=== PATIENT | male | born 1950 | race African-American/Black ===

== ENCOUNTER 2017-03-22 14:37 | Inpatient (IN) | payer MEDICARE ==
[2017-03-22 15:09] LABS: ABSOLUTE BASOPHILS # (AUTO) 0.1 10^3/uL (0.0-0.2); ABSOLUTE EOSINOPHILS # (AUTO) 0.1 10^3/uL (0.0-0.6); ABSOLUTE LYMPHOCYTES (AUTO) 2.1 10^3/uL (0.5-4.7); ABSOLUTE MONOCYTES (AUTO) 0.6 10^3/uL (0.1-1.4); ABSOLUTE NEUT (AUTO) 3.4 10^3/uL (1.7-8.2); BASOPHILS % (AUTO) 0.9 % (0-2); EOSINOPHILS % (AUTO) 2.2 % (0-6); HEMATOCRIT 40.9 % (37.9-51.0); HEMOGLOBIN 13.6 g/dL (13.5-17.0); HGB HCT DIFFERENCE -0.1; LYMPHOCYTES % (AUTO) 33.3 % (13-45); MEAN CORPUSCULAR HEMOGLOBIN 29.8 pg (27.0-33.4); MEAN CORPUSCULAR HGB CONC 33.3 g/dL (32.0-36.0); MEAN CORPUSCULAR VOLUME 90 fl (80-97); MONOCYTES % (AUTO) 8.9 % (3-13); RED BLOOD COUNT 4.56 10^6/uL (4.35-5.55); RED CELL DISTRIBUTION WIDTH 14.7 % (11.5-14.0); SEGMENTED NEUTROPHILS % (AUTO) 54.7 % (42-78); WHITE BLOOD COUNT 6.2 10^3/uL (4.0-10.5)
[2017-03-22 15:23] LABS: ALANINE AMINOTRANSFERASE 39 U/L (21-72); ALBUMIN 4.1 g/dL (3.5-5.0); ALKALINE PHOSPHATASE 63 U/L (38-126); ANION GAP 12 (5-19); ASPARTATE AMINO TRANSFERASE 26 U/L (17-59); BILIRUBIN,DIRECT 0.4 mg/dL (0.0-0.4); BILIRUBIN,TOTAL 0.8 mg/dL (0.2-1.3); BLOOD UREA NITROGEN 15 mg/dL (7-20); CALCIUM 9.3 mg/dL (8.4-10.2); CARBON DIOXIDE 29 mmol/L (22-30); CHLORIDE 104 mmol/L (98-107); CREATINE KINASE 292 U/L (55-170); CREATININE RESULT 0.87 mg/dL (0.52-1.25); GLUCOSE 88 mg/dL (75-110); POTASSIUM 3.3 mmol/L (3.6-5.0); SODIUM 145.2 mmol/L (137-145); TOTAL PROTEIN 7.5 g/dL (6.3-8.2)
[2017-03-22 15:31] LABS: APPEARANCE,URINE CLEAR; BILIRUBIN,URINE NEGATIVE (NEGATIVE); GLUCOSE, URINE NEGATIVE (NEGATIVE); KETONES,URINE NEGATIVE (NEGATIVE); LEUKOCYTE ESTERASE,URINE NEGATIVE (NEGATIVE); NITRITE,URINE NEGATIVE (NEGATIVE); PROTEIN,URINE 30 mg/dL (NEGATIVE); URINE SPECIFIC GRAVITY 1.016; UROBILINOGEN,URINE NEGATIVE mg/dL (<2.0)
[2017-03-22 15:34] LABS: CREATINE KINASE MB 3.32 ng/mL (<4.55); TROPONIN I 0.013 ng/mL
--- NOTE | 2017-03-22 16:26 | ER Document Report ---
ED Syncope and Near Syncope - General Mode of Arrival: Ambulatory Information source: Patient - HPI Patient complains to provider of: Fainting Episode witnessed (by whom): Yes - coworkers Symptoms prior to episode: None <AARTI SANDERS - Last Filed: 03/22/17 22:13> <FANTA SPENCE - Last Filed: 03/22/17 22:55> - General Chief Complaint: Syncope Stated Complaint: SYNCOPE Time Seen by Provider: 03/22/17 15:56 Notes: Patient is a 67-year-old male that presents to the emergency department today with complaints of a syncopal episode that occurred prior to arrival today. Patient states he was at work when this occurred. Patient states he was "getting up to move when all of a sudden he could not see" and then he "fainted ". Patient states he is on no medications and is a healthy individual. Patient states he is getting over a common cold and has been taking Sudafed. Patient denies any shortness of breath, chest pain, fevers, or vomiting. Patient states he did get mildly nauseated after the syncopal episode but this has subsided. (AARTI SANDERS) - Related Data Allergies/Adverse Reactions: No Known Allergies Allergy (Verified 03/22/17 14:54) Past Medical History - General Information source: Patient - Social History Smoking Status: Unknown if Ever Smoked Cigarette use (# per day): No Chew tobacco use (# tins/day): No Frequency of alcohol use: None Drug Abuse: None Lives with: Family - Medical History Medical History: Negative Surgical Hx: Negative <AARTI SANDERS - Last Filed: 03/22/17 22:13> - Social History Family History: Reviewed & Not Pertinent <FANTA SPENCE - Last Filed: 03/22/17 22:55> Review of Systems - Review of Systems Constitutional: denies: Fever EENT: No symptoms reported Cardiovascular: See HPI, Syncope. denies: Chest pain Respiratory: denies: Short of breath Gastrointestinal: See HPI, Nausea. denies: Vomiting Genitourinary: No symptoms reported Male Genitourinary: No symptoms reported Musculoskeletal: No symptoms reported Skin: No symptoms reported Hematologic/Lymphatic: No symptoms reported Neurological/Psychological: No symptoms reported -: Yes All other systems reviewed and negative <AARTI SANDERS - Last Filed: 03/22/17 22:13> Physical Exam - Vital signs Interpretation: Hypertensive <TOMMYAARTI - Last Filed: 03/22/17 22:13> <FANTA SPENCE - Last Filed: 03/22/17 22:55> - Vital signs Vitals: Resp Pulse Ox 19 100 03/22/17 15:11 03/22/17 15:11 - Notes Notes: Physical Exam: General: Alert. HEENT: Normocephalic. Atraumatic. PERRL. Extraocular movements intact. Oropharynx clear. Dry mucous membranes. Neck: Supple. Non-tender. Respiratory: No respiratory distress. Clear and equal breath sounds bilaterally. Cardiovascular: Regular rate and rhythm. Abdominal: Normal Inspection. Non-tender. No distension. Normal Bowel Sounds. Back: Non-tender. No deformity or step off. Extremities: Moves all four extremities. Upper extremities: Normal inspection. Normal ROM. Lower extremities: Normal inspection. No edema. Normal ROM. Neurological: Normal cognition. AAOx4. Normal speech. Psychological: Normal affect. Normal Mood. Skin: Warm. Dry. Normal color. (AARTI SANDERS) Course - Laboratory Result Diagrams: 03/22/17 14:47 03/22/17 14:47 <[email or web address] - Last Filed: 03/22/17 22:13> - Laboratory Result Diagrams: 03/22/17 14:47 03/22/17 14:47 - Diagnostic Test Radiology reviewed: Reports reviewed - EKG Interpretation by Ak EKG shows normal: Sinus rhythm Rate: Normal Rhythm: NSR <FANTA SPENCE - Last Filed: 03/22/17 22:55> - Re-evaluation Re-evalutation: 03/22/17 Patient is a 67-year-old male who presents with syncope at home. Patient is hypertensive on exam. Patient was given hydralazine. Blood work within normal limits. Given the patient's high blood pressure, syncope with nausea and diaphoresis today, patient will be kept in the hospital. Patient is agreeable to this plan. Refer to the hospitalist service. Stable at the time of admission. (FANTA SPENCE) - Vital Signs Vital signs: Temp Pulse Resp BP Pulse Ox 98.5 F 67 20 150/91 H 99 03/22/17 21:39 03/22/17 21:43 03/22/17 21:39 03/22/17 21:43 03/22/17 21:43 - Laboratory Laboratory results interpreted by me: 03/22/17 03/22/17 03/22/17 14:47 14:47 15:11 RDW 14.7 H Sodium 145.2 H Potassium 3.3 L Creatine Kinase 292 H Urine Protein 30 H Urine Blood SMALL H Discharge <AARTI SANDERS - Last Filed: 03/22/17 22:13> - [facility] Admitted: [facility] <FANTA SPENCE - Last Filed: 03/22/17 22:55> - Discharge Clinical Impression: Accelerated hypertension Syncope Qualifiers: Syncope type: vasovagal syncope Qualified Code(s): R55 - Syncope and collapse Condition: Stable Disposition: ADMITTED INPATIENT Scribe Attestation: 03/22/17 22:55 I personally performed the services described in the documentation, reviewed and edited the documentation which was dictated to the scribe in my presence, and it accurately records my words and actions. (FANTA SPENCE) Scribe Documentation - Scribe Written by Mary:: Mary Tellez, 03/22/2017 1632 acting as scribe for :: Lindsey <AARTI SANDERS - Last Filed: 03/22/17 22:13>
[2017-03-22] MEDS ORDERED: NORMAL SALINE 500 ML IV ONE (16:27)
[2017-03-22] MEDS ORDERED: HYDRALAZINE HCL INJ/PF 20 MG/1 ML SDV IV ONE (16:59)
[2017-03-22] MEDS ORDERED: ASPIRIN 81 MG TABLET, CHEWABLE PO ONE (18:02)
[2017-03-22] MEDS ORDERED: ACETAMINOPHEN 325 MG TABLET PO PRN (18:05)
[2017-03-22] MEDS ORDERED: MAG HYDROX/AL HYDROX/SIMETH SUSP 30 ML UDCUP PO PRN (18:05)
[2017-03-22] MEDS ORDERED: ONDANSETRON HCL INJ/PF 4 MG/2 ML SDV IV PRN (18:05)
[2017-03-22] MEDS: NORMAL SALINE 1000 ML 1,000 ML IV PRN (18:25)
[2017-03-22] MEDS ORDERED: LORAZEPAM 0.5 MG TABLET PO ONE (18:37)
--- NOTE | 2017-03-22 18:38 | EKG REPORT ---
SEVERITY:- ABNORMAL ECG - SINUS RHYTHM VENTRICULAR PREMATURE COMPLEX LEFT VENTRICULAR HYPERTROPHY : Confirmed by: Ravi Basurto 22-Mar-2017 18:37:55
[2017-03-22] MEDS ORDERED: THIAMINE HCL 100 MG TABLET PO ONE (18:39)
[2017-03-22] MEDS ORDERED: FOLIC ACID 1 MG TABLET PO ONE (18:39)
--- NOTE | 2017-03-22 18:48 | PDOC H&P ---
History of Present Illness Admission Date/PCP: 03/22/17 no pcp History of Present Illness: MARLYS VASQUEZ is a 67 year old male Past Medical History Cardiac Medical History: Reports: Other - Syncope Psychiatric Medical History: Reports: Alcohol Dependency, Tobacco Dependency Past Surgical History Past Surgical History: Reports: Herniorrhaphy, Tonsillectomy Social History Lives with: Family Smoking Status: Current Every Day Smoker Cigars Per Day: 1 Frequency of Alcohol Use: Occasional Amount of Alcoholic Beverages Per Day: Previously used to drink 1/5 of bourbon a day, now drinks a shot of moonshi Hx Recreational Drug Use: No Hx Prescription Drug Abuse: No - Advance Directive Resuscitation Status: Full Code Surrogate healthcare decision maker:: Kristan Vasquez, Family History Family History: Hypertension, Other - Kidney problems Parental Family History Reviewed: No - Unknown to patient Children Family History Reviewed: Yes Sibling(s) Family History Reviewed.: Yes Medication/Allergy Allergies/Adverse Reactions: No Known Allergies Allergy (Verified 03/22/17 14:54) Review of Systems Constitutional: ABSENT: chills, fever(s), headache(s), weight gain, weight loss Eyes: ABSENT: visual disturbances Ears: ABSENT: hearing changes Cardiovascular: ABSENT: chest pain, dyspnea on exertion, edema, orthropnea, palpitations Respiratory: ABSENT: cough, hemoptysis Gastrointestinal: ABSENT: abdominal pain, constipation, diarrhea, hematemesis, hematochezia, nausea, vomiting Genitourinary: ABSENT: dysuria, hematuria Musculoskeletal: ABSENT: joint swelling Integumentary: ABSENT: rash, wounds Neurological: ABSENT: abnormal gait, abnormal speech, confusion, dizziness, focal weakness, syncope Psychiatric: ABSENT: anxiety, depression, homidical ideation, suicidal ideation Endocrine: ABSENT: cold intolerance, heat intolerance, polydipsia, polyuria Hematologic/Lymphatic: ABSENT: easy bleeding, easy bruising Physical Exam Vital Signs: Temp Pulse Resp BP Pulse Ox 73 143/77 H 03/22/17 18:10 03/22/17 18:10 General appearance: PRESENT: no acute distress, thin, well-developed Head exam: PRESENT: atraumatic, normocephalic Eye exam: PRESENT: conjunctiva pink, EOMI, PERRLA. ABSENT: scleral icterus Ear exam: PRESENT: normal external ear exam Mouth exam: PRESENT: dry mucosa, tongue midline Teeth exam: PRESENT: edentulous Neck exam: ABSENT: JVD, lymphadenopathy, thyromegaly, tracheal deviation Respiratory exam: PRESENT: clear to auscultation woody, prolonged expiratory phas , unlabored. ABSENT: rales, rhonchi, wheezes Cardiovascular exam: PRESENT: RRR, +S1, +S2. ABSENT: diastolic murmur, rubs, systolic murmur Pulses: PRESENT: normal dorsalis pedis pul Vascular exam: PRESENT: normal capillary refill GI/Abdominal exam: PRESENT: normal bowel sounds, soft. ABSENT: distended, firm , guarding, mass, Hollis's sign, organolmegaly, rebound, rigid, tenderness Rectal exam: PRESENT: deferred Extremities exam: PRESENT: clubbing - Mild, full ROM. ABSENT: calf tenderness, pedal edema Neurological exam: PRESENT: alert, awake, oriented to person, oriented to place , oriented to time, oriented to situation, CN II-XII grossly intact. ABSENT: motor sensory deficit Psychiatric exam: PRESENT: appropriate affect, normal mood. ABSENT: homicidal ideation, suicidal ideation Skin exam: PRESENT: dry, intact, warm. ABSENT: cyanosis, rash Results Laboratory Results: 03/22/17 14:47 03/22/17 14:47 03/22/17 03/22/17 03/22/17 14:47 14:47 15:11 WBC 6.2 RBC 4.56 Hgb 13.6 Hct 40.9 MCV 90 MCH 29.8 MCHC 33.3 RDW 14.7 H Plt Count 235 Seg Neutrophils % 54.7 Lymphocytes % 33.3 Monocytes % 8.9 Eosinophils % 2.2 Basophils % 0.9 Absolute Neutrophils 3.4 Absolute Lymphocytes 2.1 Absolute Monocytes 0.6 Absolute Eosinophils 0.1 Absolute Basophils 0.1 Sodium 145.2 H Potassium 3.3 L Chloride 104 Carbon Dioxide 29 Anion Gap 12 BUN 15 Creatinine 0.87 Est GFR ( Amer) > 60 Est GFR (Non-Af Amer) > 60 Glucose 88 Calcium 9.3 Total Bilirubin 0.8 AST 26 ALT 39 Alkaline Phosphatase 63 Total Protein 7.5 Albumin 4.1 Urine Color YELLOW Urine Appearance CLEAR Urine pH 6.0 Ur Specific [place] 1.016 Urine Protein 30 H Urine Glucose (UA) NEGATIVE Urine Ketones NEGATIVE Urine Blood SMALL H Urine Nitrite NEGATIVE Ur Leukocyte Esterase NEGATIVE Urine WBC (Auto) 1 Urine RBC (Auto) 2 03/22/17 03/22/17 03/22/17 14:47 14:47 16:44 Creatine Kinase 292 H CK-MB (CK-2) 3.32 Troponin I 0.013 0.023 EKG Comments: LVH, normal sinus rhythm, 1 PVC Assessment & Plan - Diagnosis (1) Syncope Qualifiers: Syncope type: vasovagal syncope Qualified Code(s): R55 - Syncope and collapse Is this a current diagnosis for this admission?: Yes Plan: Feel this is likely vasovagal syncope, but due to orthostasis. Patient reports that he had a previous episode in 2001 at [facility] when he was working there. He reports that he had a stress test that was normal at that time. Will obtain CTA of the chest. TSH. We will monitor patient on telemetry for arrhythmia. However I suspect that this is likely secondary to general malnourishment and dehydration. Patient will require echo to rule out structural disease. (2) Accelerated hypertension Is this a current diagnosis for this admission?: Yes Plan: Patient received hydralazine in the emergency department with improvement of his blood pressure. Will place patient on Cozaar (3) Alcohol abuse Is this a current diagnosis for this admission?: Yes Plan: Patient reports that he currently drinks moonshine nightly. He reports that he previously used to drink 1/5 of bourbon daily and but has not done this in over a year. He denies any seizure or tremulousness after stopping drinking. (4) Tobacco abuse Is this a current diagnosis for this admission?: Yes Plan: Have encouraged cessation. Patient declined nicotine patch (5) Orthostasis Is this a current diagnosis for this admission?: Yes Plan: Patient was unable to complete orthostatics due to feeling dizzy. We will give him a 1 L fluid bolus and gently hydrate - Time Time Spent: 50 to 70 Minutes Medications reviewed and adjusted accordingly: Yes Anticipated discharge: Home Within: within 48 hours - Inpatient Certification Based on my medical assessment, after consideration of the patient's comorbidities, presenting symptoms, or acuity I expect that the services needed warrant INPATIENT care.: Yes I certify that my determination is in accordance with my understanding of Medicare's requirements for reasonable and necessary INPATIENT services [42 CFR 412.3e].: Yes Medical Necessity: Need For IV Fluids, Need For Continuous Telemetry Monitoring Post Hospital Care: D/C [facility] Documentation
[2017-03-22 19:12] LABS: MAGNESIUM 1.6 mg/dL (1.6-2.3)
[2017-03-22 19:15] LABS: ALCOHOL < 10 mg/dL (NONE DETECTED)
[2017-03-22 19:26] LABS: CREATINE KINASE MB 3.03 ng/mL (<4.55); TROPONIN I 0.021 ng/mL
[2017-03-22 19:43] LABS: URINE BARBITURATES SCREEN NEGATIVE; URINE METHADONE SCREEN NEGATIVE; URINE OPIATES LOW NEGATIVE; URINE PHENCYCLIDINE SCREEN NEGATIVE
--- NOTE | 2017-03-22 20:17 | RADIOLOGY REPORT (SQ) ---
EXAM DESCRIPTION: CT CHEST WITH COMPLETED DATE/TIME: 03/22/2017 7:32 pm REASON FOR STUDY: syncope and collapse COMPARISON: None. TECHNIQUE: CT scan of the chest performed using helical scanning technique with dynamic intravenous contrast injection. Images reviewed with lung, soft tissue and bone windows. Reconstructed coronal and sagittal MPR images reviewed. All images stored on PACS. All CT scanners at this facility use dose modulation, iterative reconstruction, and/or weight based d osing when appropriate to reduce radiation dose to as low as reasonably achievable (ALARA). [facility]: Dose Right [facility]: CareDose [facility]: Dose Right [facility]: Teradose 4D [facility]: Nukotoys CONTRAST TYPE AND DOSE: contrast/concentration: Isovue 370.00 mg/ml; Total Contrast Delivered: 80.0 ml; Total Saline Delivered: 45.0 ml RENAL FUNCTION: Creatinine 0.87 RADIATION DOSE: Up-to-date CT equipment and radiation dose reduction techniques were employed. CTDIv ol: 8.6 mGy. DLP: 343 mGy-cm. . LIMITATIONS: None. FINDINGS: LUNGS AND PLEURA: No opacities. No pneumothorax. No effusions. Tiny 3.8 mm in diameter p ulmonary nodule is identified in the right middle lobe best seen on image number 39. A ground-glass opacity is identified in the lingula of the left upper lobe measuring 13.8 mm best seen on image numb er 36. Followup recommendations are as noted below. HILAR AND MEDIASTINAL STRUCTURES: No identified masses or abnormal nodes. HEART AND VASCULAR STRUCTURES: No aneurysm or dissection. No central pulmonary emboli. No pericardi al effusion. HARDWARE: None in the chest. UPPER ABDOMEN: No significant findings. Limited exam. THYROID AND OTHER SOFT TISSUES: No masses. No adenopathy. BONES: No significant finding. OTHER: No other significant finding. IMPRESSION: No acute consolidations or pleural effusions are identified. No pneumothorax is seen. Pulmonary nodules with followup as recommended below. Other findings as noted above <6mm multiple solid nodules: LOW RISK: no routine followup. HIGH RISK: optional CT 12 mo. COMMENT: Fleischner Criteria for Ground Glass Nodules: >6mm ground glass single nodule: CT 6-12 mo, then CT every 2 yr until 5 yr TECHNICAL DOCUMENTATION: JOB ID: [id number] Quality ID # [id number]: Final reports with documentation of one or more dose reduction techniques (e.g., Au tomated exposure control, adjustment of the mA and/or kV according to patient size, use of iterative reconstruction technique) 2010 [employer]- All Rights Reserved
[2017-03-22] MEDS: THIAMINE HCL 100 MG TABLET PO SCH (20:39)
[2017-03-22] MEDS ORDERED: INFLUENZA ADLT QUAD (36MOS+) 2017-18 VAC 0.5 ML SYR IM PRN (23:53)
[2017-03-23 01:27] LABS: CREATINE KINASE MB 2.34 ng/mL (<4.55); TROPONIN I 0.027 ng/mL
[2017-03-23] MEDS: LOSARTAN POTASSIUM 25 MG TABLET PO SCH ×3 (02:10→21:20)
[2017-03-23] MEDS: NORMAL SALINE 1000 ML 1,000 ML IV PRN ×2 (02:11→18:11)
[2017-03-23] MEDS: HEPARIN SOD (PORCINE) 5,000 UNIT/ML 1 ML SYRINGE SUBCUT SCH ×4 (02:12→21:21)
[2017-03-23 06:53] LABS: ABSOLUTE BASOPHILS # (AUTO) 0.1 10^3/uL (0.0-0.2); ABSOLUTE EOSINOPHILS # (AUTO) 0.4 10^3/uL (0.0-0.6); ABSOLUTE LYMPHOCYTES (AUTO) 1.8 10^3/uL (0.5-4.7); ABSOLUTE MONOCYTES (AUTO) 0.6 10^3/uL (0.1-1.4); EOSINOPHILS % (AUTO) 5.4 % (0-6); HEMATOCRIT 38.9 % (37.9-51.0); HEMOGLOBIN 13.4 g/dL (13.5-17.0); HGB HCT DIFFERENCE 1.3; LYMPHOCYTES % (AUTO) 26.9 % (13-45); MEAN CORPUSCULAR HEMOGLOBIN 30.9 pg (27.0-33.4); MEAN CORPUSCULAR HGB CONC 34.5 g/dL (32.0-36.0); MEAN CORPUSCULAR VOLUME 90 fl (80-97); MONOCYTES % (AUTO) 8.4 % (3-13); RED BLOOD COUNT 4.35 10^6/uL (4.35-5.55); RED CELL DISTRIBUTION WIDTH 15.1 % (11.5-14.0); SEGMENTED NEUTROPHILS % (AUTO) 58.3 % (42-78); WHITE BLOOD COUNT 6.8 10^3/uL (4.0-10.5)
[2017-03-23 07:05] LABS: ANION GAP 8 (5-19); BLOOD UREA NITROGEN 13 mg/dL (7-20); CARBON DIOXIDE 28 mmol/L (22-30); CHLORIDE 105 mmol/L (98-107); CREATINE KINASE 325 U/L (55-170); CREATININE RESULT 0.75 mg/dL (0.52-1.25); GLUCOSE 96 mg/dL (75-110); MAGNESIUM 1.8 mg/dL (1.6-2.3); POTASSIUM 3.3 mmol/L (3.6-5.0)
[2017-03-23 07:14] LABS: CREATINE KINASE MB 2.08 ng/mL (<4.55); TROPONIN I 0.02 ng/mL
[2017-03-23] MEDS: FOLIC ACID 1 MG TABLET PO SCH (09:05)
[2017-03-23] MEDS: ASPIRIN 325 MG TABLET, ENT COATED PO SCH (09:05)
--- NOTE | 2017-03-23 10:23 | XCELERA REPORT ---
[address] [address] Transthoracic Echocardiogram Report Name: MARLYS VASQUEZ Age: 67 yrs Gender: Male : 1950 Patient Status: Inpatient Patient Location: [address] [place], [place] [id number] Study Date: 03/23/2017 07:50 AM Height: 69 in Weight: 148 lb BSA: 1.8 m2 Procedure: A complete two-dimensional transthoracic echocardiogram was performed (2D, M-mode, spectral and color flow Doppler). The study was technically adequate with some images being suboptimal in quality. Reason For Study: Syncope Ordering Physician: VIK BOONE Performed By: Jessica Hanson Interpretation Summary The Ejection Fraction estimate is 40-45% There is mild concentric left ventricular hypertrophy. The left ventricle is borderline dilated. Doppler measurements suggest pseudonormalized left ventricular relaxation, which is associated with grade II/IV or mild to moderate diastolic dysfunction There is mild to moderate global hypokinesis of the left ventricle. The right ventricular systolic function is normal. The left atrium is mildly dilated. The right atrium is normal in size There is a trace to mild amount of mitral regurgitation There is no mitral valve stenosis. There is a mild to moderate amount of aortic regurgitation There is no aortic valve stenosis There is a trace or physiologic amount of tricuspid regurgitation Tricuspid regurgitation jet envelope not well defined to measure RV systolic pressure accurately. The aortic root is not well visualized. The inferior vena cava appeared normal and decreased > 50% with respiration (RAP 5-10 mmHg) There is no pericardial effusion. MMode/2D Measurements & Calculations RVDd: 3.5 cm LVIDd: 5.7 cm FS: 19.8 % Ao root diam: 3.5 cm IVSd: 1.0 cm LVIDs: 4.6 cm EDV(Teich): 160.7 ml LVPWd: 1.0 cm ESV(Teich): 96.4 ml Ao root area: 9.5 cm2 EF(Teich): 40.0 % Doppler Measurements & Calculations MV E max av: MV dec slope: Ao V2 max: AI max av: 76.2 cm/sec 110.0 cm/sec 341.7 cm/sec MV A max av: 231.2 cm/sec2 Ao max PG: AI max P.9 cm/sec MV dec time: 4.8 mmHg 47.0 mmHg MV E/A: 1.1 0.33 sec AI dec slope: 57.7 cm/sec2 AI P1/2t: 1734 msec LV V1 max PG: PA V2 max: PI end-d av: TR max av: 2.3 mmHg 69.8 cm/sec 125.8 cm/sec 268.8 cm/sec LV V1 max: PA max P.9 mmHg TR max P.7 cm/sec 28.9 mmHg Left Ventricle The left ventricle is borderline dilated. There is mild concentric left ventricular hypertrophy. The Ejection Fraction estimate is 40-45%. Doppler measurements suggest pseudonormalized left ventricular relaxation, which is associated with grade II/IV or mild to moderate diastolic dysfunction. There is mild to moderate global hypokinesis of the left ventricle. Right Ventricle The right ventricle is grossly normal size. There is normal right ventricular wall thickness. The right ventricular systolic function is normal. Atria The right atrium is normal in size. The left atrium is mildly dilated. Interarterial septum not well visualized and not well dopplered. Cannot comment on ASD/PFO presence. Mitral Valve The mitral valve is grossly normal. There is no mitral valve stenosis. There is a trace to mild amount of mitral regurgitation. Aortic Valve The aortic valve is grossly normal. There is no aortic valve stenosis. There is a mild to moderate amount of aortic regurgitation. Tricuspid Valve The tricuspid valve is not well visualized, but is grossly normal. There is no tricuspid stenosis. There is a trace or physiologic amount of tricuspid regurgitation. Tricuspid regurgitation jet envelope not well defined to measure RV systolic pressure accurately. Pulmonic Valve The pulmonic valve is not well visualized. Great Vessels The aortic root is not well visualized. The inferior vena cava appeared normal and decreased > 50% with respiration (RAP 5-10 mmHg). Effusions There is no pericardial effusion. : VIK BOONE > Ravi Basurto
[2017-03-23] MEDS ORDERED: DEXTROSE 50%-WATER 25 GM/50 ML DISP.SYRIN IV PRN ×2 (18:12)
[2017-03-23] MEDS ORDERED: GLUCAGON,HUMAN RECOMB 1 MG INJ IM PRN (18:12)
[2017-03-23] MEDS ORDERED: DEXTROSE 40% GEL 15 GM TUBE PO PRN ×2 (18:12)
[2017-03-23] MEDS ORDERED: INSULIN REG, HUMAN 100 UNIT/ML 3 ML VIAL (PYX) SUBCUT PRN (18:12)
--- NOTE | 2017-03-23 18:18 | PDOC PROGRESS REPORT ---
Subjective Progress Note for:: 03/23/17 Subjective:: Patient states that he is feeling much better. Nursing states that patient's blood pressure still elevated. Physical Exam Vital Signs: Temp Pulse Resp BP Pulse Ox 98.4 F 59 L 16 157/78 H 99 03/23/17 11:04 03/23/17 14:00 03/23/17 11:04 03/23/17 11:04 03/23/17 11:04 Intake & Output 03/22/17 03/23/17 03/24/17 06:59 06:59 06:59 Intake Total 483 996 Output Total 0 Balance 483 996 Weight 67.9 kg General appearance: PRESENT: no acute distress, well-developed, well-nourished Head exam: PRESENT: atraumatic, normocephalic Eye exam: PRESENT: conjunctiva pink, EOMI. ABSENT: scleral icterus Ear exam: PRESENT: normal external ear exam Mouth exam: PRESENT: moist, tongue midline Neck exam: ABSENT: carotid bruit, JVD, lymphadenopathy, thyromegaly Respiratory exam: PRESENT: clear to auscultation woody. ABSENT: rales, rhonchi, wheezes Cardiovascular exam: PRESENT: RRR. ABSENT: diastolic murmur, rubs, systolic murmur Pulses: PRESENT: normal dorsalis pedis pul Vascular exam: PRESENT: normal capillary refill GI/Abdominal exam: PRESENT: normal bowel sounds, soft. ABSENT: distended, guarding, mass, organolmegaly, rebound, tenderness Rectal exam: PRESENT: deferred Extremities exam: PRESENT: full ROM. ABSENT: calf tenderness, clubbing, pedal edema Neurological exam: PRESENT: alert, awake, oriented to person, oriented to place , oriented to time, oriented to situation, CN II-XII grossly intact. ABSENT: motor sensory deficit Psychiatric exam: PRESENT: appropriate affect, normal mood. ABSENT: homicidal ideation, suicidal ideation Skin exam: PRESENT: dry, intact, warm. ABSENT: cyanosis, rash Results Laboratory Results: 03/23/17 06:41 03/23/17 06:41 03/22/17 03/22/17 03/23/17 18:44 18:44 06:41 WBC 6.8 RBC 4.35 Hgb 13.4 L Hct 38.9 MCV 90 MCH 30.9 MCHC 34.5 RDW 15.1 H Plt Count 207 Seg Neutrophils % 58.3 Lymphocytes % 26.9 Monocytes % 8.4 Eosinophils % 5.4 Basophils % 1.0 Absolute Neutrophils 4.0 Absolute Lymphocytes 1.8 Absolute Monocytes 0.6 Absolute Eosinophils 0.4 Absolute Basophils 0.1 Sodium Potassium Chloride Carbon Dioxide Anion Gap BUN Creatinine Est GFR ( Amer) Est GFR (Non-Af Amer) Glucose Calcium Magnesium 1.6 TSH 2.63 03/23/17 06:41 WBC RBC Hgb Hct MCV MCH MCHC RDW Plt Count Seg Neutrophils % Lymphocytes % Monocytes % Eosinophils % Basophils % Absolute Neutrophils Absolute Lymphocytes Absolute Monocytes Absolute Eosinophils Absolute Basophils Sodium 141.0 Potassium 3.3 L Chloride 105 Carbon Dioxide 28 Anion Gap 8 BUN 13 Creatinine 0.75 Est GFR ( Amer) > 60 Est GFR (Non-Af Amer) > 60 Glucose 96 Calcium 9.0 Magnesium 1.8 TSH 03/22/17 03/22/17 03/23/17 18:44 18:44 00:58 Creatine Kinase 334 H 376 H CK-MB (CK-2) 3.03 Troponin I 0.021 03/23/17 03/23/17 03/23/17 00:58 06:41 06:41 Creatine Kinase 325 H CK-MB (CK-2) 2.34 2.08 Troponin I 0.027 0.020 Impressions: Chest CT 03/22/17 00:00 IMPRESSION: No acute consolidations or pleural effusions are identified. No pneumothorax is seen. Pulmonary nodules with followup as recommended below. Other findings as noted above <6mm multiple solid nodules: LOW RISK: no routine followup. HIGH RISK: optional CT 12 mo. Assessment & Plan - Diagnosis (1) Hypokalemia Is this a current diagnosis for this admission?: Yes Plan: We will give potassium replacement. Will check BMP in a.m. (2) Accelerated hypertension Is this a current diagnosis for this admission?: Yes Plan: Add Norvasc for better blood pressure control. (3) Alcohol abuse Is this a current diagnosis for this admission?: Yes Plan: History of alcohol use. Will continue to monitor patient closely. (4) Orthostasis Is this a current diagnosis for this admission?: Yes Plan: Ruled out. (5) Syncope Qualifiers: Syncope type: vasovagal syncope Qualified Code(s): R55 - Syncope and collapse Is this a current diagnosis for this admission?: Yes Plan: Resolved. Was likely vasovagal syncope. Patient is denied any episodes of dizziness. (6) Tobacco abuse Is this a current diagnosis for this admission?: Yes Plan: Encourage discontinuation of tobacco use - Time Time Spent with patient: 15-24 minutes
[2017-03-23] MEDS ORDERED: POTASSIUM CHLORIDE 10 MEQ TABLET.SA PO ONE (19:00)
[2017-03-23] MEDS ORDERED: AMLODIPINE BESYLATE 10 MG TABLET PO ONE (19:00)
[2017-03-24 05:39] LABS: ABSOLUTE BASOPHILS # (AUTO) 0.1 10^3/uL (0.0-0.2); ABSOLUTE EOSINOPHILS # (AUTO) 0.5 10^3/uL (0.0-0.6); ABSOLUTE LYMPHOCYTES (AUTO) 2.1 10^3/uL (0.5-4.7); ABSOLUTE MONOCYTES (AUTO) 0.6 10^3/uL (0.1-1.4); ABSOLUTE NEUT (AUTO) 1.8 10^3/uL (1.7-8.2); BASOPHILS % (AUTO) 1.2 % (0-2); EOSINOPHILS % (AUTO) 10.1 % (0-6); HEMATOCRIT 41.1 % (37.9-51.0); HEMOGLOBIN 14.4 g/dL (13.5-17.0); HGB HCT DIFFERENCE 2.1; LYMPHOCYTES % (AUTO) 41.1 % (13-45); MEAN CORPUSCULAR HEMOGLOBIN 31.1 pg (27.0-33.4); MEAN CORPUSCULAR HGB CONC 34.9 g/dL (32.0-36.0); MEAN CORPUSCULAR VOLUME 89 fl (80-97); MONOCYTES % (AUTO) 11.3 % (3-13); RED BLOOD COUNT 4.62 10^6/uL (4.35-5.55); RED CELL DISTRIBUTION WIDTH 15.4 % (11.5-14.0); SEGMENTED NEUTROPHILS % (AUTO) 36.3 % (42-78)
[2017-03-24 05:55] LABS: ANION GAP 9 (5-19); BLOOD UREA NITROGEN 13 mg/dL (7-20); CALCIUM 9.1 mg/dL (8.4-10.2); CARBON DIOXIDE 28 mmol/L (22-30); CHLORIDE 107 mmol/L (98-107); CREATININE RESULT 0.89 mg/dL (0.52-1.25); GLUCOSE 94 mg/dL (75-110); POTASSIUM 4.1 mmol/L (3.6-5.0); SODIUM 143.5 mmol/L (137-145)
[2017-03-24] MEDS: NORMAL SALINE 1000 ML 1,000 ML IV PRN (06:19)
[2017-03-24] MEDS: HEPARIN SOD (PORCINE) 5,000 UNIT/ML 1 ML SYRINGE SUBCUT SCH ×2 (06:19→15:09)
[2017-03-24] MEDS ORDERED: HYDROCHLOROTHIAZIDE 25 MG TABLET PO ONE (07:58)
[2017-03-24] MEDS: LOSARTAN POTASSIUM 25 MG TABLET PO SCH (08:56)
[2017-03-24] MEDS: THIAMINE HCL 100 MG TABLET PO SCH (08:56)
[2017-03-24] MEDS: FOLIC ACID 1 MG TABLET PO SCH (08:57)
[2017-03-24] MEDS: ASPIRIN 325 MG TABLET, ENT COATED PO SCH (08:57)
[2017-03-24] MEDS ORDERED: AMLODIPINE BESYLATE 10 MG TABLET PO SCH (10:00)
[2017-03-24 15:00] VITALS: BP 156/88
--- NOTE | 2017-03-24 16:40 | PDOC DISCHARGE SUMMARY ---
General - Admit/Disc Date/PCP Admission Date/Primary Care Provider: 03/22/17 18:05 Discharge Date: 03/24/17 - Discharge Diagnosis (1) Hypokalemia Is this a current diagnosis for this admission?: Yes Summary: Resolved (2) Accelerated hypertension Is this a current diagnosis for this admission?: Yes Summary: We will continue patient on Norvasc, losartan, hydralazine with parameters, and HCTZ (3) Alcohol abuse Is this a current diagnosis for this admission?: Yes Summary: Pt received vitamin replacement therapy. No evidence of alcohol withdrawal (4) Orthostasis Is this a current diagnosis for this admission?: Yes Summary: Ruled out no evidence of orthostasis patient was hypertensive (5) Syncope Is this a current diagnosis for this admission?: Yes Summary: Near syncope etiology unclear no further recurrence. (6) Tobacco abuse Is this a current diagnosis for this admission?: Yes Summary: Encourage patient to discontinue tobacco use - Additional Information Resuscitation Status: Full Code Discharge Diet: Cardiac Discharge Activity: Activity As Tolerated Home Medications: Amlodipine Besylate [Norvasc 10 mg Tablet] 10 mg PO DAILY #60 tablet 03/24/17 Hydralazine HCl [Apresoline 50 mg Tablet] 50 mg PO TID #90 tab 03/24/17 Hydrochlorothiazide [Hydrodiuril 25 mg Tablet] 25 mg PO DAILY #30 tablet Losartan Potassium [Cozaar 25 mg Tablet] 25 mg PO Q12 #60 tablet 03/24/17 History of Present Illness Patient complains of: Dizziness History of Present Illness: MARLYS VASQUEZ is a 67 year old male to the emergency room with complaint of dizziness. Patient reports that at work he became very dizzy and 1 of his friends had to help him get to his seat. Hospital Course Hospital Course: Patient is 67-year-old patient who presented to hospital after complaint of dizziness. Patient states that he did not lose complete consciousness. Patient reported that one of his friends helped him get to a chair. Patient reported that he had been told he had high blood pressure in the past but had not been on any medications of the last several years. Patient was noted during hospitalization to have low potassium and potassium was replaced. Patient's blood pressure medications were adjusted for better control. She had no further issues during hospitalization. Physical Exam Vital Signs: Temp Pulse Resp BP Pulse Ox 97.7 F 90 19 156/88 H 99 03/24/17 14:57 03/24/17 14:57 03/24/17 14:57 03/24/17 14:57 03/24/17 14:57 Intake & Output 03/23/17 03/24/17 03/25/17 06:59 06:59 06:59 Intake Total 483 3301 720 Output Total 0 Balance 483 3301 720 Weight 67.9 kg 69.9 kg General appearance: PRESENT: no acute distress, well-developed, well-nourished Head exam: PRESENT: atraumatic, normocephalic Eye exam: PRESENT: conjunctiva pink, EOMI. ABSENT: scleral icterus Ear exam: PRESENT: normal external ear exam Mouth exam: PRESENT: moist, tongue midline Neck exam: ABSENT: carotid bruit, JVD, lymphadenopathy, thyromegaly Respiratory exam: PRESENT: clear to auscultation woody. ABSENT: rales, rhonchi, wheezes Cardiovascular exam: PRESENT: RRR. ABSENT: diastolic murmur, rubs, systolic murmur Pulses: PRESENT: normal dorsalis pedis pul Vascular exam: PRESENT: normal capillary refill GI/Abdominal exam: PRESENT: normal bowel sounds, soft. ABSENT: distended, guarding, mass, organolmegaly, rebound, tenderness Rectal exam: PRESENT: deferred Extremities exam: PRESENT: full ROM. ABSENT: calf tenderness, clubbing, pedal edema Musculoskeletal exam: PRESENT: full ROM Neurological exam: PRESENT: alert, awake, oriented to person, oriented to place , oriented to time, oriented to situation, CN II-XII grossly intact. ABSENT: motor sensory deficit Psychiatric exam: PRESENT: appropriate affect, normal mood. ABSENT: homicidal ideation, suicidal ideation Skin exam: PRESENT: dry, intact, warm. ABSENT: cyanosis, rash Results Laboratory Results: 03/24/17 05:05 03/24/17 05:05 03/24/17 03/24/17 05:05 05:05 WBC 5.0 RBC 4.62 Hgb 14.4 Hct 41.1 MCV 89 MCH 31.1 MCHC 34.9 RDW 15.4 H Plt Count 216 Seg Neutrophils % 36.3 L Lymphocytes % 41.1 Monocytes % 11.3 Eosinophils % 10.1 H Basophils % 1.2 Absolute Neutrophils 1.8 Absolute Lymphocytes 2.1 Absolute Monocytes 0.6 Absolute Eosinophils 0.5 Absolute Basophils 0.1 Sodium 143.5 Potassium 4.1 Chloride 107 Carbon Dioxide 28 Anion Gap 9 BUN 13 Creatinine 0.89 Est GFR ( Amer) > 60 Est GFR (Non-Af Amer) > 60 Glucose 94 Calcium 9.1 03/22/17 03/22/17 03/23/17 18:44 18:44 00:58 Creatine Kinase 334 H 376 H CK-MB (CK-2) 3.03 Troponin I 0.021 03/23/17 03/23/17 03/23/17 00:58 06:41 06:41 Creatine Kinase 325 H CK-MB (CK-2) 2.34 2.08 Troponin I 0.027 0.020 Impressions: Chest CT 03/22/17 00:00 IMPRESSION: No acute consolidations or pleural effusions are identified. No pneumothorax is seen. Pulmonary nodules with followup as recommended below. Other findings as noted above <6mm multiple solid nodules: LOW RISK: no routine followup. HIGH RISK: optional CT 12 mo.
[2017-03-25] MEDS ORDERED: HYDROCHLOROTHIAZIDE 25 MG TABLET PO SCH (10:00)
== END 2017-03-24 15:48 | disposition home or self-care (01) | DRG 641 ==
LOC: ER 14:37 → EDBD 14:37 → EH 18:05 → UNDOADMIN 18:39 → EH 18:39 → 3W 21:21
PROVIDERS: ADMIT Family Medicine; ATTEND Family Medicine
DX: E87.6 Hypokalemia (principal); I16.1 Hypertensive emergency; I10 Essential (primary) hypertension; F17.210 Nicotine dependence, cigarettes, uncomplicated; R55 Syncope and collapse; F10.10 Alcohol abuse, uncomplicated; Z82.49 Family history of ischemic heart disease and other diseases of the circulatory system
CPT/HCPCS: 36415; 71260; 80048; 80053; 80307; 81001; 82550; 82553; 83735; 84443; 84484; 85025; 93005; 93010; 93306; 96361; 96374; 99285; J0360; J1644; J7030; J7040